=== PATIENT | male | born 1960 | race Caucasian/White ===

== ENCOUNTER → 2017-11-13 10:13 | Outpatient (CLI) | payer OTHER, BC, SELFPAY ==
--- NOTE | 2017-11-13 10:16 | DI.RAD.S_ITS ---
PROCEDURE: XR FOOT RT MIN 3V INDICATIONS: RIGHT FOOT PAIN TECHNIQUE: 3 views of the foot were acquired. COMPARISON: None. FINDINGS: Bones: No fractures or dislocations. No suspicious bony lesions. Mild calcaneal insertion spurring at the plantar fascia and Achilles tendon margins, consistent with calcific tendinitis/enthesopathy. Soft tissues: No tibiotalar joint effusion. Achilles tendon appears normal. IMPRESSION: There are plantar fascia and Achilles tendon mild insertional spurs at the posterior calcaneus. No alternative source of foot pain is found. Dictated by: Sudhir Jiménez M.D. on 11/13/2017 at 10:36 Approved by: Sudhir Jiménez M.D. on 11/13/2017 at 10:37
== END ==
PROVIDERS: Family Provider Physician Assistant; PCP Physician Assistant; Visit Provider Physician Assistant
DX: M79.671 Pain in right foot (principal); M77.31 Calcaneal spur, right foot
CPT/HCPCS: 73630

== ENCOUNTER → 2018-01-30 07:48 | Outpatient (CLI) | payer BC, SELFPAY ==
[2018-01-30 09:37] LABS: Alanine Aminotransferase 27 IU/L (21-72); Albumin 4.3 g/dL (3.5-5.0); Albumin Globulin Ratio 0.9 (1.0-2.8); Alkaline Phosphatase 43 U/L (38-126); Aspartate Aminotransferase 47 IU/L (17-59); Bilirubin Total 0.7 mg/dL (0.2-1.3); Blood Urea Nitrogen 16 mg/dL (9-20); Calcium 9.4 mg/dL (8.4-10.2); Carbon Dioxide 25 mmol/L (22-32); Chloride 105 mmol/L (98-107); Cholesterol 232 mg/dL (140-199); Estimated Glomerular Filt Rate > 60.0 mL/min (>60); Globulin 4.7 g/dL (1.7-4.1); Glucose 106 mg/dL (70-100); HDL Cholesterol 39 mg/dL (40-60); HEMOLYSIS 27 (0-50); LDL Cholesterol Calculated 173 mg/dL (<100); Potassium 4.4 mmol/L (3.4-5.1); Sodium 143 mmol/L (137-145); Triglycerides 101 mg/dL (35-150); Uric Acid 8.5 mg/dL (3.5-8.5)
[2018-01-30 09:45] LABS: Creatinine Urine Random 295.3 mg/dL
[2018-01-30 10:14] LABS: Microalbumi Creatinin Ratio Ur 169.3 ug/mg CR (<30)
== END ==
PROVIDERS: PCP Physician Assistant; Visit Provider Physician Assistant
DX: E78.5 Hyperlipidemia, unspecified (principal); I10 Essential (primary) hypertension; M25.50 Pain in unspecified joint
CPT/HCPCS: 36415; 80053; 80061; 82043; 82570; 84550

== ENCOUNTER → 2018-02-12 11:44 | Outpatient (CLI) | payer BC, SELFPAY ==
[2018-02-12 12:24] LABS: Add Manual Diff / Slide Review NO; Basophils Percent Auto 0.5 % (0-2); Eosinophils Percent Auto 12.9 % (2-4); Hematocrit 50.1 % (41-53); Hemoglobin 16.9 g/dL (13.5-17.5); Lymphocytes Percent Auto 14.3 % (25-40); Mean Corpuscular HGB Conc 33.7 % (30-36); Mean Corpuscular Volume 97.8 fL (80-100); Monocytes Percent Auto 13.6 % (3-14); Neutrophils Absolute Auto 2400 /uL (3000-5900); Neutrophils Percent Auto 58.7 % (50-75); Platelet Count 149 X10^3/uL (150-400); Red Blood Cell Count 5.13 X10^6/uL (4.5-5.9); Red Cell Distribution Width 13.3 % (11.6-14.8); White Blood Cell Count 4.1 X10^3/uL (4.5-11.0)
[2018-02-12 15:39] LABS: Alanine Aminotransferase 41 IU/L (21-72); Albumin 4.3 g/dL (3.5-5.0); Alkaline Phosphatase 44 U/L (38-126); Aspartate Aminotransferase 50 IU/L (17-59); Bilirubin Total 0.8 mg/dL (0.2-1.3); Bilirubin Unconjugated 0.3 mg/dL (0.0-1.1); Globulin 4.4 g/dL (1.7-4.1); HEMOLYSIS 16 (0-50); Total Protein 8.7 g/dL (6.3-8.2)
[2018-02-15 15:14] LABS: Albumin 37 %; Protein/ Creatinine Ratio 330 mg/g creat (22-128); Total Urine Protein 69 mg/dL (5-25); Urine Creatinine, Random 209 mg/dL (20-320)
== END ==
PROVIDERS: PCP Physician Assistant; Visit Provider Physician Assistant
DX: F10.10 Alcohol abuse, uncomplicated (principal); R53.83 Other fatigue; R77.9 Abnormality of plasma protein, unspecified
CPT/HCPCS: 36415; 80076; 84156; 84166; 85025

== ENCOUNTER 2018-02-13 14:05 | Emergency (ER) | payer BC, SELFPAY ==
[2018-02-13 14:12] VITALS: BP 113/80; PULSE 89; RESP 18; O2SAT 95
[2018-02-13 14:14] VITALS: BP 113/80; PULSE 89; RESP 18; TEMP 38.2; O2SAT 95; BMI 34.0
--- NOTE | 2018-02-13 14:38 | ED.SYNCOPE ---
HPI - Syncope <SEDRICK Loyd - Last Filed: 02/13/18 22:13> General Chief Complaint: Syncope Stated Complaint: ABNORMAL EKG,ALMOST FAINTED DRIVING,HX CARDIAC CAILIN Time Seen by Provider: 02/13/18 14:16 Source: patient Mode of arrival: ambulatory Limitations: no limitations History of Present Illness HPI narrative: 57-year-old male with a history of aflutter and is a nonsmoker here for complaint of a 3 episodes of feeling lightheaded and that he felt like he was about ready to pass out earlier today that started at 8 o'clock this morning. 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 He reports that he did have some episodes of a blurriness in his vision during these episodes. He does report that he normally drinks a 5th of vodka every night for approximately 10 years and states that he is recently in the past couple of days trying to decrease the amount of alcohol that he is drinking. He states that he was not able to have much alcohol intake last night due to a tooth pain as he recently seen the dentist. He has been placed on antibiotics however he has not picked up his antibiotics as of yet. He denies any chest pain. No shortness of breath. He denies having fever however he does have a fever today. He states that he feels better at this timeframe with no lightheadedness. No headache. No blurry vision. He denies any nausea vomiting. No diaphoresis. MD complaint: felt faint Related Data Previous Rx's Medication Instructions Recorded lisinopril 10 1 tab PO DAILY #90 tab 09/02/17 mg-hydrochlorothiazide 12.5 mg tablet allopurinol 300 mg tablet 300 mg PO DAILY #90 tab 01/30/18 atorvastatin 20 mg tablet 20 mg PO BEDTIME #45 tab 02/11/18 Allergies Allergy/AdvReac Type Severity Reaction Status Date / Time No Known Allergies Allergy Uncoded 02/13/18 12:55 Review of Systems <SEDRICK Loyd - Last Filed: 02/13/18 22:13> Constitutional Denies frequent falls Comments: Pre syncopal events and lightheadedness Eyes Reports blurry vision ENT Ears, Nose, Mouth, and Throat: Denies change in voice, Denies dizziness, Denies neck pain and Denies sore throat Cardiovascular Denies chest pain, Denies irregular heart rhythm, Denies lightheadedness, Denies palpitations, Denies dyspnea, Denies dyspnea on exertion and Denies orthopnea Respiratory Denies cough, Denies dyspnea, Denies dyspnea on exertion and Denies wheezing Gastrointestinal Gastrointestinal: Denies abdominal pain, Denies change in bowel habits, Denies diarrhea, Denies nausea and Denies vomiting Genitourinary Denies hematuria, Denies flank pain, Denies urinary incontinence and Denies urinary urgency Musculoskeletal Denies neck pain and Denies numbness Integumentary/Breasts Denies pruritus, Denies erythema, Denies rash and Denies wounds Neurologic Denies behavioral changes, Denies confusion, Denies dizziness, Denies frequent falls and Denies numbness Psychiatric Denies behavioral changes and Denies confusion Endocrine Denies palpitations Hematologic/Lymphatic Denies easy bruising Allergic/Immunologic Denies wheezing Exam <SEDRICK Loyd - Last Filed: 02/13/18 22:13> Initial Vital Signs Initial Vital Signs: Vital Signs Pulse Rate 89 02/13/18 14:12 Respiratory Rate 18 02/13/18 14:12 Blood Pressure 113/80 02/13/18 14:12 Pulse Oximetry 95 02/13/18 14:12 Const General: cooperative and well developed Nutritional Appearance: well nourished Orientation: alert, awake, oriented x3 and not confused [facility] Mouth: oral mucosae normal and moist mucous membranes Eyes Conjunctivae: conjunctivae normal Sclera: sclerae normal Pupils: PERRL EOM: EOM intact bilaterally Chest Chest: normal inspection of the chest Resp Effort & Inspection: normal respiratory effort, able to speak in complete sentences, no respiratory distress and no use of accessory muscles Auscultation: clear to auscultation bilaterally, no rales, no rhonchi and no wheezes Cardio Rate: regular rate Rhythm: regular rhythm Heart Sounds: no click, no gallops, no murmurs and no rubs Pulses: normal peripheral pulses Skin General: no rashes or lesions noted, No jaundice and No petechiae Neuro General: alert, oriented x3, gait normal and no focal motor deficits Speech: speech normal <Sal Hernandez DO - Last Filed: 02/14/18 07:12> Initial Vital Signs Initial Vital Signs: Vital Signs Pulse Rate 89 02/13/18 14:12 Respiratory Rate 18 02/13/18 14:12 Blood Pressure 113/80 02/13/18 14:12 Pulse Oximetry 95 02/13/18 14:12 Course <SEDRICK Loyd - Last Filed: 02/13/18 22:13> Orders Ordered: Discontinued Medications Sodium Chloride (Normal Saline 0.9%) 1,000 mls @ 1,000 mls/hr IV BOLUS ONE Stop: 02/13/18 15:26 Last Infusion: 02/13/18 16:21 Dose: 0 mls/hr Admin: 02/13/18 15:00 Dose: 1,000 mls/hr Sodium Chloride (Normal Saline 0.9%) 1,000 mls @ 1,000 mls/hr IV BOLUS ONE Stop: 02/13/18 16:48 Vital Signs - 8 hr 02/13/18 14:12 02/13/18 14:14 02/13/18 16:28 Temperature 100.8 F H 98.4 F Pulse Rate 89 89 79 Respiratory Rate 18 18 16 Blood Pressure 113/80 118/79 Blood Pressure [Left Arm] 113/80 Pulse Oximetry 95 95 95 <Sal Hernandez DO - Last Filed: 02/14/18 07:12> Orders Ordered: Discontinued Medications Sodium Chloride (Normal Saline 0.9%) 1,000 mls @ 1,000 mls/hr IV BOLUS ONE Stop: 02/13/18 15:26 Last Infusion: 02/13/18 16:21 Dose: 0 mls/hr Admin: 02/13/18 15:00 Dose: 1,000 mls/hr Sodium Chloride (Normal Saline 0.9%) 1,000 mls @ 1,000 mls/hr IV BOLUS ONE Stop: 02/13/18 16:48 Vital Signs - 8 hr 02/13/18 14:12 02/13/18 14:14 02/13/18 16:28 Temperature 100.8 F H 98.4 F Pulse Rate 89 89 79 Respiratory Rate 18 18 16 Blood Pressure 113/80 118/79 Blood Pressure [Left Arm] 113/80 Pulse Oximetry 95 95 95 MDM - Syncope <SEDRICK Loyd - Last Filed: 02/13/18 22:13> Lab Data Result diagrams: 02/13/18 14:29 02/13/18 14:29 Lab Results 02/13/18 02/13/18 02/13/18 Range/Units 14:05 14:29 14:29 WBC 4.8 (4.5-11.0) X10^3/uL RBC 4.94 (4.5-5.9) X10^6/uL Hgb 16.8 (13.5-17.5) g/dL Hct 48.8 (41-53) % MCV 98.9 (80-100) fL MCH 33.9 (26-34) PG MCHC 34.3 (30-36) % RDW 13.5 (11.6-14.8) % Plt Count 123 L (150-400) X10^3/uL Neut % (Auto) 73.5 (50-75) % Lymph % (Auto) 9.2 L (25-40) % Pleasants % (Auto) 10.4 (3-14) % Eos % (Auto) 6.3 H (2-4) % Baso % (Auto) 0.6 (0-2) % Neut # (Auto) 3500 (7352-5674) /uL Sodium 133 L (137-145) mmol/L Potassium 5.1 (3.4-5.1) mmol/L Chloride 91 L (98-107) mmol/L Carbon Dioxide 25 (22-32) mmol/L BUN 32 H (9-20) mg/dL Creatinine 1.70 H (0.66-1.25) mg/dL Estimated GFR 41.8 L (>60) mL/min BUN/Creatinine Ratio 18.8 (6-22) Glucose 105 H (70-100) mg/dL Calcium 9.2 (8.4-10.2) mg/dL Total Bilirubin 1.0 (0.2-1.3) mg/dL AST 68 H (17-59) IU/L ALT 36 (21-72) IU/L Alkaline Phosphatase 37 L (38-126) U/L Total Creatine Kinase 95 (55-170) U/L CK-MB (CK-2) TNP CK-MB (CK-2) Rel Index TNP Troponin I < 0.012 (0.01-0.034) ng/mL B-Natriuretic Peptide < 100.0 (<100) Total Protein 9.6 H (6.3-8.2) g/dL Albumin 4.5 (3.5-5.0) g/dL Globulin 5.1 H (1.7-4.1) g/dL Albumin/Globulin Ratio 0.9 L (1.0-2.8) Imaging Data CT scan - head: Radiologist's impression: [address] [address] [address] Scan Report Signed Patient: Shaw Melvin [facility]#: [id number] : 1Acct:[id number] Age/Sex: 57 / MDate of Service: 02/13/18 Loc: ED Accession Number: [id number] Procedure: CT head/brain wo con Ordering Provider: Calderon Campbell PROCEDURE: CT HEAD/BRAIN WO CON INDICATIONS: Pre syncopal episodes earlier today TECHNIQUE: Noncontrast 4.5 mm thick angled axial sections acquired from the foramen magnum to the vertex, with coronal and sagittal reformats. For radiation dose reduction, the following was used: automated exposure control, adjustment of mA and/or kV according to patient size. COMPARISON: None. FINDINGS: Image quality: Excellent. CSF spaces: Basal cisterns are patent. No extra-axial fluid collections. The ventricles are symmetric in size and shape. Brain: No intracranial bleeds or masses. There is cerebral volume loss for age, with resultant ventricular and sulcal prominence. There are periventricular and deep white matter chronic small vessel ischemic changes. There is intracranial internal carotid artery atherosclerosis. Skull and face: Calvarium and visualized facial bones appear intact, without suspicious lesions. Sinuses: Visualized sinuses and mastoids are clear. IMPRESSION: No acute intracranial disease process. Dictated by: Grace Jamil MD, PhD on 02/13/2018 at 14:57 Approved by: Grace Jamil MD, PhD on 02/13/2018 at 14:58 ECG Data Interpretation: EKG shows normal sinus rhythm with no ST elevation or depression. No ectopy. Ventricular rate of 85. Pr interval of 196. QRS duration of 101. QTC 358. MDM Narrative Medical decision making narrative: EKG shows sinus rhythm with no ST elevation or depression. No ectopy. Chest x-ray was obtained was negative for any acute findings. CT of the head was obtained was negative. Patient was given some fluids in the emergency room he stated he felt much better. CBC was obtained was unremarkable. Chem panel shows decreased GFR increased creatinine of 1.7. Patient states that he has not been drinking much fluids so most likely secondary to dehydration. Patient states he felt better after fluids and desires to go home. Cardiac enzymes were obtained at 6 and half hr past start of symptoms and was negative. Patient had a low-grade fever in the emergency room suspect that this is due to the dental procedure and starting infection. Patient is prescribed antibiotics by the dentist however he has not filled them as of yet he was instructed to fill them today and start taking. [id number] Tylenol as needed for any discomfort. He is given a work note for the next couple of days to give him time to follow up with primary care provider and ensure is doing better before he starts driving again. Combination of the infection, dehydration and also affects of weaning himself off of alcohol contributing to his presyncope episodes. Discussed alcohol withdrawal medicines patient states that he will talk to his primary care provider about this for any worsening symptoms return emergency room. <Sal Hernandez, DO - Last Filed: 02/14/18 07:12> Lab Data Lab Results 02/13/18 02/13/18 02/13/18 Range/Units 14:05 14:29 14:29 WBC 4.8 (4.5-11.0) X10^3/uL RBC 4.94 (4.5-5.9) X10^6/uL Hgb 16.8 (13.5-17.5) g/dL Hct 48.8 (41-53) % MCV 98.9 (80-100) fL MCH 33.9 (26-34) PG MCHC 34.3 (30-36) % RDW 13.5 (11.6-14.8) % Plt Count 123 L (150-400) X10^3/uL Neut % (Auto) 73.5 (50-75) % Lymph % (Auto) 9.2 L (25-40) % Pleasants % (Auto) 10.4 (3-14) % Eos % (Auto) 6.3 H (2-4) % Baso % (Auto) 0.6 (0-2) % Neut # (Auto) 3500 (9117-9029) /uL Sodium 133 L (137-145) mmol/L Potassium 5.1 (3.4-5.1) mmol/L Chloride 91 L (98-107) mmol/L Carbon Dioxide 25 (22-32) mmol/L BUN 32 H (9-20) mg/dL Creatinine 1.70 H (0.66-1.25) mg/dL Estimated GFR 41.8 L (>60) mL/min BUN/Creatinine Ratio 18.8 (6-22) Glucose 105 H (70-100) mg/dL Calcium 9.2 (8.4-10.2) mg/dL Total Bilirubin 1.0 (0.2-1.3) mg/dL AST 68 H (17-59) IU/L ALT 36 (21-72) IU/L Alkaline Phosphatase 37 L (38-126) U/L Total Creatine Kinase 95 (55-170) U/L CK-MB (CK-2) TNP CK-MB (CK-2) Rel Index TNP Troponin I < 0.012 (0.01-0.034) ng/mL B-Natriuretic Peptide < 100.0 (<100) Total Protein 9.6 H (6.3-8.2) g/dL Albumin 4.5 (3.5-5.0) g/dL Globulin 5.1 H (1.7-4.1) g/dL Albumin/Globulin Ratio 0.9 L (1.0-2.8) Discharge Plan Departure Patient Disposition: Home Clinical Impression: Pre-syncope Discharge Date/Time: 02/13/18 16:30 Interventions: ED Discharge Assessment Last Done: 02/13/18 16:28 Instructions: DI for Syncope in Adults (Fainting) Activity Restrictions/Additional Instructions: Laboratory results show decreased kidney function most likely secondary to dehydration. I believe that your symptoms earlier today was most likely due to dehydration along with other factors such as suspect starting dental infection. And also weaning off of alcohol. Recommend you hydrate yourself well. Fill prescription for antibiotics from the dentist start taking as prescribed follow-up with dentist next week. Follow up with her primary care provider the next few days for re-evaluation. For any worsening symptoms return to the emergency room. Use [id number] Tylenol as needed for any discomfort and fever. Prescriptions: No Action lisinopril-hydrochlorothiazide 10-12.5 mg tablet 1 tab PO DAILY Qty: 90 RF: 3 atorvastatin 20 mg tablet 20 mg PO BEDTIME Qty: 45 RF: 1 allopurinol 300 mg tablet 300 mg PO DAILY Qty: 90 RF: 1 Referrals: Meri Garcia PA-C [Primary Care Provider] - Stand Alone Forms: Work/School Restrictions <Sal Hernandez DO - Last Filed: 02/14/18 07:12> Cosign ED Attending Wali Attestation: I was available for consultation during this patient's emergency department encounter
--- NOTE | 2018-02-13 14:42 | ED_ITS ---
HPI - Syncope <SEDRICK Loyd - Last Filed: 02/13/18 22:13> General Chief Complaint: Syncope Stated Complaint: ABNORMAL EKG,ALMOST FAINTED DRIVING,HX CARDIAC CAILIN Time Seen by Provider: 02/13/18 14:16 Source: patient Mode of arrival: ambulatory Limitations: no limitations History of Present Illness HPI narrative: 57-year-old male with a history of aflutter and is a nonsmoker here for complaint of a 3 episodes of feeling lightheaded and that he felt like he was about ready to pass out earlier today that started at 8 o'clock this morning. 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 He reports that he did have some episodes of a blurriness in his vision during these episodes. He does report that he normally drinks a 5th of vodka every night for approximately 10 years and states that he is recently in the past couple of days trying to decrease the amount of alcohol that he is drinking. He states that he was not able to have much alcohol intake last night due to a tooth pain as he recently seen the dentist. He has been placed on antibiotics however he has not picked up his antibiotics as of yet. He denies any chest pain. No shortness of breath. He denies having fever however he does have a fever today. He states that he feels better at this timeframe with no lightheadedness. No headache. No blurry vision. He denies any nausea vomiting. No diaphoresis. MD complaint: felt faint Related Data Previous Rx's Medication Instructions Recorded lisinopril 10 1 tab PO DAILY #90 tab 09/02/17 mg-hydrochlorothiazide 12.5 mg tablet allopurinol 300 mg tablet 300 mg PO DAILY #90 tab 01/30/18 atorvastatin 20 mg tablet 20 mg PO BEDTIME #45 tab 02/11/18 Allergies Allergy/AdvReac Type Severity Reaction Status Date / Time No Known Allergies Allergy Uncoded 02/13/18 12:55 Review of Systems <SEDRICK Loyd - Last Filed: 02/13/18 22:13> Constitutional Denies frequent falls Comments: Pre syncopal events and lightheadedness Eyes Reports blurry vision ENT Ears, Nose, Mouth, and Throat: Denies change in voice, Denies dizziness, Denies neck pain and Denies sore throat Cardiovascular Denies chest pain, Denies irregular heart rhythm, Denies lightheadedness, Denies palpitations, Denies dyspnea, Denies dyspnea on exertion and Denies orthopnea Respiratory Denies cough, Denies dyspnea, Denies dyspnea on exertion and Denies wheezing Gastrointestinal Gastrointestinal: Denies abdominal pain, Denies change in bowel habits, Denies diarrhea, Denies nausea and Denies vomiting Genitourinary Denies hematuria, Denies flank pain, Denies urinary incontinence and Denies urinary urgency Musculoskeletal Denies neck pain and Denies numbness Integumentary/Breasts Denies pruritus, Denies erythema, Denies rash and Denies wounds Neurologic Denies behavioral changes, Denies confusion, Denies dizziness, Denies frequent falls and Denies numbness Psychiatric Denies behavioral changes and Denies confusion Endocrine Denies palpitations Hematologic/Lymphatic Denies easy bruising Allergic/Immunologic Denies wheezing Exam <SEDRICK Loyd - Last Filed: 02/13/18 22:13> Initial Vital Signs Initial Vital Signs: Vital Signs Pulse Rate 89 02/13/18 14:12 Respiratory Rate 18 02/13/18 14:12 Blood Pressure 113/80 02/13/18 14:12 Pulse Oximetry 95 02/13/18 14:12 Const General: cooperative and well developed Nutritional Appearance: well nourished Orientation: alert, awake, oriented x3 and not confused [facility] Mouth: oral mucosae normal and moist mucous membranes Eyes Conjunctivae: conjunctivae normal Sclera: sclerae normal Pupils: PERRL EOM: EOM intact bilaterally Chest Chest: normal inspection of the chest Resp Effort & Inspection: normal respiratory effort, able to speak in complete sentences, no respiratory distress and no use of accessory muscles Auscultation: clear to auscultation bilaterally, no rales, no rhonchi and no wheezes Cardio Rate: regular rate Rhythm: regular rhythm Heart Sounds: no click, no gallops, no murmurs and no rubs Pulses: normal peripheral pulses Skin General: no rashes or lesions noted, No jaundice and No petechiae Neuro General: alert, oriented x3, gait normal and no focal motor deficits Speech: speech normal <Sal Hernandez DO - Last Filed: 02/14/18 07:12> Initial Vital Signs Initial Vital Signs: Vital Signs Pulse Rate 89 02/13/18 14:12 Respiratory Rate 18 02/13/18 14:12 Blood Pressure 113/80 02/13/18 14:12 Pulse Oximetry 95 02/13/18 14:12 Course <SEDRICK Loyd - Last Filed: 02/13/18 22:13> Orders Ordered: Discontinued Medications Sodium Chloride (Normal Saline 0.9%) 1,000 mls @ 1,000 mls/hr IV BOLUS ONE Stop: 02/13/18 15:26 Last Infusion: 02/13/18 16:21 Dose: 0 mls/hr Admin: 02/13/18 15:00 Dose: 1,000 mls/hr Sodium Chloride (Normal Saline 0.9%) 1,000 mls @ 1,000 mls/hr IV BOLUS ONE Stop: 02/13/18 16:48 Vital Signs - 8 hr 02/13/18 14:12 02/13/18 14:14 02/13/18 16:28 Temperature 100.8 F H 98.4 F Pulse Rate 89 89 79 Respiratory Rate 18 18 16 Blood Pressure 113/80 118/79 Blood Pressure [Left Arm] 113/80 Pulse Oximetry 95 95 95 <Sal Hernandez DO - Last Filed: 02/14/18 07:12> Orders Ordered: Discontinued Medications Sodium Chloride (Normal Saline 0.9%) 1,000 mls @ 1,000 mls/hr IV BOLUS ONE Stop: 02/13/18 15:26 Last Infusion: 02/13/18 16:21 Dose: 0 mls/hr Admin: 02/13/18 15:00 Dose: 1,000 mls/hr Sodium Chloride (Normal Saline 0.9%) 1,000 mls @ 1,000 mls/hr IV BOLUS ONE Stop: 02/13/18 16:48 Vital Signs - 8 hr 02/13/18 14:12 02/13/18 14:14 02/13/18 16:28 Temperature 100.8 F H 98.4 F Pulse Rate 89 89 79 Respiratory Rate 18 18 16 Blood Pressure 113/80 118/79 Blood Pressure [Left Arm] 113/80 Pulse Oximetry 95 95 95 MDM - Syncope <SEDRICK Loyd - Last Filed: 02/13/18 22:13> Lab Data Result diagrams: 02/13/18 14:29 02/13/18 14:29 Lab Results 02/13/18 02/13/18 02/13/18 Range/Units 14:05 14:29 14:29 WBC 4.8 (4.5-11.0) X10^3/uL RBC 4.94 (4.5-5.9) X10^6/uL Hgb 16.8 (13.5-17.5) g/dL Hct 48.8 (41-53) % MCV 98.9 (80-100) fL MCH 33.9 (26-34) PG MCHC 34.3 (30-36) % RDW 13.5 (11.6-14.8) % Plt Count 123 L (150-400) X10^3/uL Neut % (Auto) 73.5 (50-75) % Lymph % (Auto) 9.2 L (25-40) % [place] % (Auto) 10.4 (3-14) % Eos % (Auto) 6.3 H (2-4) % Baso % (Auto) 0.6 (0-2) % Neut # (Auto) 3500 (5966-1227) /uL Sodium 133 L (137-145) mmol/L Potassium 5.1 (3.4-5.1) mmol/L Chloride 91 L (98-107) mmol/L Carbon Dioxide 25 (22-32) mmol/L BUN 32 H (9-20) mg/dL Creatinine 1.70 H (0.66-1.25) mg/dL Estimated GFR 41.8 L (>60) mL/min BUN/Creatinine Ratio 18.8 (6-22) Glucose 105 H (70-100) mg/dL Calcium 9.2 (8.4-10.2) mg/dL Total Bilirubin 1.0 (0.2-1.3) mg/dL AST 68 H (17-59) IU/L ALT 36 (21-72) IU/L Alkaline Phosphatase 37 L (38-126) U/L Total Creatine Kinase 95 (55-170) U/L CK-MB (CK-2) TNP CK-MB (CK-2) Rel Index TNP Troponin I < 0.012 (0.01-0.034) ng/mL B-Natriuretic Peptide < 100.0 (<100) Total Protein 9.6 H (6.3-8.2) g/dL Albumin 4.5 (3.5-5.0) g/dL Globulin 5.1 H (1.7-4.1) g/dL Albumin/Globulin Ratio 0.9 L (1.0-2.8) Imaging Data CT scan - head: Radiologist's impression: [address] [id number] [address] Scan Report Signed Patient: Shaw Melvin [facility]#: [id number] : 1Acct:[id number] Age/Sex: 57 / MDate of Service: 02/13/18 Loc: ED Accession Number: [id number] Procedure: CT head/brain wo con Ordering Provider: Calderon Campbell PROCEDURE: CT HEAD/BRAIN WO CON INDICATIONS: Pre syncopal episodes earlier today TECHNIQUE: Noncontrast 4.5 mm thick angled axial sections acquired from the foramen magnum to the vertex, with coronal and sagittal reformats. For radiation dose reduction, the following was used: automated exposure control, adjustment of mA and/or kV according to patient size. COMPARISON: None. FINDINGS: Image quality: Excellent. CSF spaces: Basal cisterns are patent. No extra-axial fluid collections. The ventricles are symmetric in size and shape. Brain: No intracranial bleeds or masses. There is cerebral volume loss for age , with resultant ventricular and sulcal prominence. There are periventricular and deep white matter chronic small vessel ischemic changes. There is intracranial internal carotid artery atherosclerosis. Skull and face: Calvarium and visualized facial bones appear intact, without suspicious lesions. Sinuses: Visualized sinuses and mastoids are clear. IMPRESSION: No acute intracranial disease process. Dictated by: Grace Jamil MD, PhD on 02/13/2018 at 14:57 Approved by: Grace Jamil MD, PhD on 02/13/2018 at 14:58 ECG Data Interpretation: EKG shows normal sinus rhythm with no ST elevation or depression. No ectopy. Ventricular rate of 85. Pr interval of 196. QRS duration of 101. QTC 358. MDM Narrative Medical decision making narrative: EKG shows sinus rhythm with no ST elevation or depression. No ectopy. Chest x-ray was obtained was negative for any acute findings. CT of the head was obtained was negative. Patient was given some fluids in the emergency room he stated he felt much better. CBC was obtained was unremarkable. Chem panel shows decreased GFR increased creatinine of 1.7. Patient states that he has not been drinking much fluids so most likely secondary to dehydration. Patient states he felt better after fluids and desires to go home. Cardiac enzymes were obtained at 6 and half hr past start of symptoms and was negative. Patient had a low-grade fever in the emergency room suspect that this is due to the dental procedure and starting infection. Patient is prescribed antibiotics by the dentist however he has not filled them as of yet he was instructed to fill them today and start taking. Over-the- counter Tylenol as needed for any discomfort. He is given a work note for the next couple of days to give him time to follow up with primary care provider and ensure is doing better before he starts driving again. Combination of the infection, dehydration and also affects of weaning himself off of alcohol contributing to his presyncope episodes. Discussed alcohol withdrawal medicines patient states that he will talk to his primary care provider about this for any worsening symptoms return emergency room. <Sal Hernandez, DO - Last Filed: 02/14/18 07:12> Lab Data Lab Results 02/13/18 02/13/18 02/13/18 Range/Units 14:05 14:29 14:29 WBC 4.8 (4.5-11.0) X10^3/uL RBC 4.94 (4.5-5.9) X10^6/uL Hgb 16.8 (13.5-17.5) g/dL Hct 48.8 (41-53) % MCV 98.9 (80-100) fL MCH 33.9 (26-34) PG MCHC 34.3 (30-36) % RDW 13.5 (11.6-14.8) % Plt Count 123 L (150-400) X10^3/uL Neut % (Auto) 73.5 (50-75) % Lymph % (Auto) 9.2 L (25-40) % [place] % (Auto) 10.4 (3-14) % Eos % (Auto) 6.3 H (2-4) % Baso % (Auto) 0.6 (0-2) % Neut # (Auto) 3500 (9802-7657) /uL Sodium 133 L (137-145) mmol/L Potassium 5.1 (3.4-5.1) mmol/L Chloride 91 L (98-107) mmol/L Carbon Dioxide 25 (22-32) mmol/L BUN 32 H (9-20) mg/dL Creatinine 1.70 H (0.66-1.25) mg/dL Estimated GFR 41.8 L (>60) mL/min BUN/Creatinine Ratio 18.8 (6-22) Glucose 105 H (70-100) mg/dL Calcium 9.2 (8.4-10.2) mg/dL Total Bilirubin 1.0 (0.2-1.3) mg/dL AST 68 H (17-59) IU/L ALT 36 (21-72) IU/L Alkaline Phosphatase 37 L (38-126) U/L Total Creatine Kinase 95 (55-170) U/L CK-MB (CK-2) TNP CK-MB (CK-2) Rel Index TNP Troponin I < 0.012 (0.01-0.034) ng/mL B-Natriuretic Peptide < 100.0 (<100) Total Protein 9.6 H (6.3-8.2) g/dL Albumin 4.5 (3.5-5.0) g/dL Globulin 5.1 H (1.7-4.1) g/dL Albumin/Globulin Ratio 0.9 L (1.0-2.8) Discharge Plan Departure Patient Disposition: Home Clinical Impression: Pre-syncope Discharge Date/Time: 02/13/18 16:30 Interventions: ED Discharge Assessment Last Done: 02/13/18 16:28 Instructions: DI for Syncope in Adults (Fainting) Activity Restrictions/Additional Instructions: Laboratory results show decreased kidney function most likely secondary to dehydration. I believe that your symptoms earlier today was most likely due to dehydration along with other factors such as suspect starting dental infection. And also weaning off of alcohol. Recommend you hydrate yourself well. Fill prescription for antibiotics from the dentist start taking as prescribed follow- up with dentist next week. Follow up with her primary care provider the next few days for re-evaluation. For any worsening symptoms return to the emergency room. Use [id number] Tylenol as needed for any discomfort and fever. Prescriptions: No Action lisinopril-hydrochlorothiazide 10-12.5 mg tablet 1 tab PO DAILY Qty: 90 RF: 3 atorvastatin 20 mg tablet 20 mg PO BEDTIME Qty: 45 RF: 1 allopurinol 300 mg tablet 300 mg PO DAILY Qty: 90 RF: 1 Referrals: Meri Garcia PA-C [Primary Care Provider] - Stand Alone Forms: Work/School Restrictions <Sal Hernandez DO - Last Filed: 02/14/18 07:12> Cosign ED Attending Wali Attestation: I was available for consultation during this patient's emergency department encounter
--- NOTE | 2018-02-13 14:45 | DI.CT.S_ITS ---
PROCEDURE: CT HEAD/BRAIN WO CON INDICATIONS: Pre syncopal episodes earlier today TECHNIQUE: Noncontrast 4.5 mm thick angled axial sections acquired from the foramen magnum to the vertex, with coronal and sagittal reformats. For radiation dose reduction, the following was used: automated exposure control, adjustment of mA and/or kV according to patient size. COMPARISON: None. FINDINGS: Image quality: Excellent. CSF spaces: Basal cisterns are patent. No extra-axial fluid collections. The ventricles are symmetric in size and shape. Brain: No intracranial bleeds or masses. There is cerebral volume loss for age, with resultant ventricular and sulcal prominence. There are periventricular and deep white matter chronic small vessel ischemic changes. There is intracranial internal carotid artery atherosclerosis. Skull and face: Calvarium and visualized facial bones appear intact, without suspicious lesions. Sinuses: Visualized sinuses and mastoids are clear. IMPRESSION: No acute intracranial disease process. Dictated by: Grace Jamil MD, PhD on 02/13/2018 at 14:57 Approved by: Grace Jamil MD, PhD on 02/13/2018 at 14:58
[2018-02-13 14:59] LABS: Add Manual Diff / Slide Review NO; Basophils Percent Auto 0.6 % (0-2); Eosinophils Percent Auto 6.3 % (2-4); Hematocrit 48.8 % (41-53); Hemoglobin 16.8 g/dL (13.5-17.5); Lymphocytes Percent Auto 9.2 % (25-40); Mean Corpuscular HGB Conc 34.3 % (30-36); Mean Corpuscular Hemoglobin 33.9 PG (26-34); Mean Corpuscular Volume 98.9 fL (80-100); Monocytes Percent Auto 10.4 % (3-14); Neutrophils Absolute Auto 3500 /uL (3000-5900); Neutrophils Percent Auto 73.5 % (50-75); Platelet Count 123 X10^3/uL (150-400); Red Blood Cell Count 4.94 X10^6/uL (4.5-5.9); Red Cell Distribution Width 13.5 % (11.6-14.8); White Blood Cell Count 4.8 X10^3/uL (4.5-11.0)
[2018-02-13] MEDS: SODIUM CHLORIDE 0.9% 1,000 ML 1000 ML IV (15:00)
[2018-02-13 15:25] LABS: Alanine Aminotransferase 36 IU/L (21-72); Albumin 4.5 g/dL (3.5-5.0); Albumin Globulin Ratio 0.9 (1.0-2.8); Alkaline Phosphatase 37 U/L (38-126); Aspartate Aminotransferase 68 IU/L (17-59); BUN Creatinine Ratio 18.8 (6-22); Blood Urea Nitrogen 32 mg/dL (9-20); Calcium 9.2 mg/dL (8.4-10.2); Carbon Dioxide 25 mmol/L (22-32); Chloride 91 mmol/L (98-107); Creatine Kinase 95 U/L (55-170); Estimated Glomerular Filt Rate 41.8 mL/min (>60); Globulin 5.1 g/dL (1.7-4.1); Glucose 105 mg/dL (70-100); Sodium 133 mmol/L (137-145); Total Protein 9.6 g/dL (6.3-8.2)
[2018-02-13 15:32] LABS: HEMOLYSIS 113 (0-50)
[2018-02-13 15:32] LABS: B Type Natriuretic Peptide < 100.0 (<100)
[2018-02-13 15:33] LABS: Potassium 5.1 mmol/L (3.4-5.1)
[2018-02-13 15:38] LABS: Troponin I < 0.012 ng/mL (0.01-0.034)
[2018-02-13 16:28] VITALS: BP 118/79; PULSE 79; RESP 16; TEMP 36.9; O2SAT 95
== END 2018-02-13 16:30 | disposition home or self-care (01) ==
PROVIDERS: Emergency Provider Nurse Practitioner Family; Family Provider Physician Assistant; PCP Physician Assistant
DX: R55 Syncope and collapse (principal)
CPT/HCPCS: 36591; 70450; 80053; 82550; 83880; 84484; 85025; 93005; 93010; 96360; 99283; 99285

== ENCOUNTER 2020-03-14 10:53 | Emergency (ER) | payer BC, SELFPAY ==
[2020-03-14] VITALS (9 sets, daily range): BP systolic 166–209; BP diastolic 89–119; PULSE 77–88; RESP 17–24; TEMP 36.6; O2SAT 94–96; BMI 38.9
--- NOTE | 2020-03-14 12:09 | DI.RAD.S_ITS ---
PROCEDURE: XR CHEST 1V INDICATIONS: Cough TECHNIQUE: One view of the chest was acquired. COMPARISON: [facility], , CHEST 2 VIEW, 05/06/2015, 14:45. FINDINGS: Surgical changes and devices: None. Lungs and pleura: An incomplete inspiratory result is noted, causing a crowded appearance to the lung markings. No focal infiltrates are seen. No pneumothorax or significant pleural effusions are seen. Mediastinum: Mediastinal contours appear normal. Heart size is normal. Bones and chest wall: No suspicious bony lesions. Age-appropriate bony degenerative changes are seen. Overlying soft tissues appear unremarkable. IMPRESSION: No definite, focal infiltrates are seen. If there is clinical concern for a developing pulmonary process, a short-term followup chest series (with PA and lateral views, performed in deep inspiration) is suggested for further evaluation. Dictated by: Isidro Curry M.D. on 03/14/2020 at 12:00 Approved by: Isidro Curry M.D. on 03/14/2020 at 12:01
[2020-03-14] MEDS: SODIUM CHLORIDE 0.9% 1,000 ML 1000 ML IV (12:30)
--- NOTE | 2020-03-14 12:38 | ED_ITS ---
HPI - URI/Sore Throat <SEDRICK Aguilar - Last Filed: 03/14/20 19:24> General Chief Complaint: Upper Respiratory Symptoms Stated Complaint: Spitting up blood this morning Time Seen by Provider: 03/14/20 12:01 Source: patient Mode of arrival: Ambulatory Limitations: no limitations History of Present Illness HPI Narrative: 59yo male with a history of a PE in 2012, HTN, and MONA, presents to the ED for coughing up blood that started yesterday. Patient states he usually has a cough in the mornings however, his cough 2-3 days. He noticed some blood-tinged phlegm yesterday and a small amount of increasing blood today. Patient states the blood in his phlegm decreases throughout the day. However, last time he had a pulmonary embolism his symptom was coughing up blood. He denies any other symptoms such as chest pain, shortness of breath, headaches, malaise, nausea, vomiting, diarrhea, dizziness, or any other concerns. Related Data Previous Rx's Medication Instructions Recorded allopurinol 300 mg tablet 300 mg PO DAILY #90 tab 01/30/18 atorvastatin 20 mg tablet 20 mg PO BEDTIME #45 tab 02/11/18 lisinopril 10 1 tab PO DAILY #90 tab 08/31/19 mg-hydrochlorothiazide 12.5 mg tablet Allergies Allergy/AdvReac Type Severity Reaction Status Date / Time No Known Allergies Allergy Uncoded 03/03/18 15:47 Review of Systems <SEDRICK Aguilar - Last Filed: 03/14/20 19:24> Review of Systems Narrative: REVIEW OF SYSTEMS: GENERAL: Denies fevers. HENT: No head trauma or hearing loss. EYES: No vision changes. CARDIOVASCULAR: No chest pain. RESPIRATORY: No shortness of breath, reports coughing up blood, see HPI. GASTROINTESTINAL: No nausea, vomiting, diarrhea, or constipation. MUSCULOSKELETAL: No weakness or injury. INTEGUMENTARY: No rash. Patient History <SEDRICK Aguilar - Last Filed: 03/14/20 19:24> Medical History Atrial flutter (06/2012) Closed displaced fracture of triquetrum of right wrist (11/12/16) Gout History of alcohol abuse Morbid obesity Pulmonary embolism (06/2012) Sleep apnea (~2012) Wrist fracture, right (10/2016) Surgical History S/P ablation of atrial flutter (10/01/12) Family History Father Cancer Grandfather Heart attack Mother No problems noted. Grandmother No problems noted. Brother No problems noted. Brother No problems noted. Brother No problems noted. Social History Smoking Status: Never smoker second hand exposure: No alcohol intake: current (vodka every day) substance use type: does not use Smoking Status: Never smoker alcohol intake frequency: 0-2 drinks per day Substance Use Type: does not use Exam <SEDRICK Aguilar - Last Filed: 03/14/20 19:24> Initial Vital Signs Initial Vital Signs: Vital Signs Temperature 98 F 03/14/20 11:09 Pulse Rate 88 03/14/20 11:09 Respiratory Rate 18 03/14/20 11:09 Blood Pressure 209/119 H 03/14/20 11:09 Pulse Oximetry 94 03/14/20 11:09 PHYSICAL EXAMINATION: GENERAL: Well groomed, alert, and cooperative. Answers questions promptly and appropriately. Vital signs noted. HENT: Normocephalic, atraumatic. Oropharynx without erythema. EYES: Conjunctiva pink, sclera white, no periorbital swelling. No discharge. CHEST: Normal to inspection and without deformities. CARDIOVASCULAR: S1 and S2 sounds normal. Regular rate and rhythm, no murmurs, clicks, or bruits. RESPIRATORY: Normal respiratory rate, trachea midline, airway patent. No stridor, nasal flaring or accessory muscle use. Able to speak in full sentence s. Lungs are clear in all chang without wheeze, rhonchi, or crackles. Intermittent dry cough noted throughout exam. MUSCULOSKELETAL: Normal gait and coordination. Equal tone and mass bilaterally. EXTREMITIES: Moves all extremities. SKIN: Warm, dry, soft, appropriate color for ethnicity. No lesions, rashes, or wounds to visualized areas. NEURO: Alert and Oriented X 3. Good coordination. No ataxia or cognitive issues. PSYCH: Appropriate affect and mood. <Kailyn TripathiDO - Last Filed: 03/15/20 19:14> Initial Vital Signs Initial Vital Signs: Vital Signs Temperature 98 F 03/14/20 11:09 Pulse Rate 88 03/14/20 11:09 Respiratory Rate 18 03/14/20 11:09 Blood Pressure 209/119 H 03/14/20 11:09 Pulse Oximetry 94 03/14/20 11:09 Scores <SEDRICK Aguilar - Last Filed: 03/14/20 19:24> PERC Score Age greater than or equal to 50 years: Yes Heart rate greater than or equal to 100 bpm: No Room Air O2 Sat less than 95%: Yes Unilateral leg swelling: No Recent trauma or surgery: No Hemoptysis: Yes Prior PE or DVT: Yes Hormone Use: No Total PERC Score: 4 Wells' Criteria for PE Clinical signs and symptoms of DVT: No PE is #1 Dx or equally likely: No Heart rate > 100: No Immobilization at least 3 days or surg in previous 4 weeks: No History of PE or DVT: Yes Hemoptysis: Yes Malignancy w/Treatment within 6 months or palliative: No Wells' PE Score total: 2.5 Course <SEDRICK Aguilar - Last Filed: 03/14/20 19:24> Course Course Narrative: 1531: Contacted Infectious Disease Dr. Miller, she suggested contacting the Health Department for possible admission versus discharge. However, she suggested admission with sputum studies and QuantiFERON gold. 1630: Spoke with the health department, they recommended calling local [facility] for further follow-up. 1646: I spoke with RN from [facility], discussed that this patient is currently in [facility], she states she will make calls and refer back. 1540: Patient was updated on plan of care 1708: Unable to get a hold of the health department, QuantiFERON gold and sputum culture ordered. Patient left AMA, gave cell phone number for contact information. 1730: I spoke with epidemiology is Dr. Sudhir Cohen, discussed test ordered. He agrees that patient can be followed up by outpatient and contacted if any positive findings. He reports he will reports suspected cases to the Health Department for further follow-up. Orders Ordered: Discontinued Medications Sodium Chloride (Normal Saline 0.9%) 1,000 mls @ 1,000 mls/hr IV BOLUS PRN PRN Reason: Fluid replacement Last Infusion: 03/14/20 13:15 Dose: 0 mls/hr Documented by: Admin: 03/14/20 12:30 Dose: 1,000 mls/hr Documented by: GERMAN Vital Signs Vital signs: Vital Signs - 8 hr 03/14/20 13:00 03/14/20 13:05 03/14/20 13:30 Pulse Rate 82 81 Respiratory Rate 24 22 Blood Pressure 178/97 H 173/89 H Pulse Oximetry 96 95 03/14/20 14:00 03/14/20 14:15 03/14/20 14:30 Pulse Rate 78 81 77 Respiratory Rate 21 19 17 Blood Pressure 179/92 H 191/110 H 166/97 H Pulse Oximetry 96 96 94 03/14/20 15:00 03/14/20 15:30 Pulse Rate 77 80 Respiratory Rate 19 23 Blood Pressure 180/98 H 199/107 H Pulse Oximetry 95 95 <Kailyn Tripathi DO - Last Filed: 03/15/20 19:14> Orders Ordered: Discontinued Medications Sodium Chloride (Normal Saline 0.9%) 1,000 mls @ 1,000 mls/hr IV BOLUS PRN PRN Reason: Fluid replacement Last Infusion: 03/14/20 13:15 Dose: 0 mls/hr Documented by: Admin: 03/14/20 12:30 Dose: 1,000 mls/hr Documented by: GERMAN Vital Signs Vital signs: Vital Signs - 8 hr 03/14/20 13:00 03/14/20 13:05 03/14/20 13:30 Pulse Rate 82 81 Respiratory Rate 24 22 Blood Pressure 178/97 H 173/89 H Pulse Oximetry 96 95 03/14/20 14:00 03/14/20 14:15 03/14/20 14:30 Pulse Rate 78 81 77 Respiratory Rate 21 19 17 Blood Pressure 179/92 H 191/110 H 166/97 H Pulse Oximetry 96 96 94 03/14/20 15:00 03/14/20 15:30 Pulse Rate 77 80 Respiratory Rate 19 23 Blood Pressure 180/98 H 199/107 H Pulse Oximetry 95 95 MDM - URI/Sore Throat <SEDRICK Aguilar - Last Filed: 03/14/20 19:24> Medical Records Attestation: I reviewed the patient's medical records. Lab Data Attestation: I reviewed the patient's lab results. Result diagrams: 03/14/20 12:30 03/14/20 12:30 Labs: Lab Results 03/14/20 03/14/20 03/14/20 Range/Units 12:30 12:30 12:30 WBC 8.4 (4.5-11.0) X10^3/uL RBC 4.92 (4.5-5.9) X10^6/uL Hgb 16.4 (13.5-17.5) g/dL Hct 48.9 (41-53) % MCV 99.2 (80-100) fL MCH 33.4 (26-34) PG MCHC 33.6 (30-36) % RDW 13.8 (11.6-14.8) % Plt Count 201 (150-400) X10^3/uL Neut % (Auto) 75.6 H (50-75) % Lymph % (Auto) 15.0 L (25-40) % [place] % (Auto) 7.8 (3-14) % Eos % (Auto) 1.0 L (2-4) % Baso % (Auto) 0.6 (0-2) % Neut # (Auto) 6400 (2887-7447) /uL Lymph # (Auto) 1300 (7575-7821) /uL [place] # (Auto) 700 (0-900) /uL Eos # (Auto) 100 (0-450) /uL Baso # (Auto) 100 (0-100) /uL D-Dimer 271 H (<230) ng/mL Sodium 138 (137-145) mmol/L Potassium 4.3 (3.4-5.1) mmol/L Chloride 102 (98-107) mmol/L Carbon Dioxide 31 (22-32) mmol/L BUN 13 (9-20) mg/dL Creatinine 0.68 (0.66-1.25) mg/dL Estimated GFR > 60.0 (>60) mL/min BUN/Creatinine Ratio 19.1 (6-22) Glucose 110 H (70-100) mg/dL Calcium 9.2 (8.4-10.2) mg/dL Total Bilirubin 1.2 (0.2-1.3) mg/dL AST 29 (17-59) IU/L ALT 19 (<50) IU/L Alkaline Phosphatase 46 (38-126) U/L Total Creatine Kinase (55-170) U/L CK-MB (CK-2) CK-MB (CK-2) Rel Index Troponin I (0.01-0.034) ng/mL Total Protein 8.2 (6.3-8.2) g/dL Albumin 4.0 (3.5-5.0) g/dL Globulin 4.2 H (1.7-4.1) g/dL Albumin/Globulin Ratio 1.0 (1.0-2.8) COVID-19 PCR (Negative) 03/14/20 03/14/20 Range/Units 12:30 13:00 WBC (4.5-11.0) X10^3/uL RBC (4.5-5.9) X10^6/uL Hgb (13.5-17.5) g/dL Hct (41-53) % MCV (80-100) fL MCH (26-34) PG MCHC (30-36) % RDW (11.6-14.8) % Plt Count (150-400) X10^3/uL Neut % (Auto) (50-75) % Lymph % (Auto) (25-40) % [place] % (Auto) (3-14) % Eos % (Auto) (2-4) % Baso % (Auto) (0-2) % Neut # (Auto) (5973-7154) /uL Lymph # (Auto) (5908-2558) /uL [place] # (Auto) (0-900) /uL Eos # (Auto) (0-450) /uL Baso # (Auto) (0-100) /uL D-Dimer (<230) ng/mL Sodium (137-145) mmol/L Potassium (3.4-5.1) mmol/L Chloride (98-107) mmol/L Carbon Dioxide (22-32) mmol/L BUN (9-20) mg/dL Creatinine (0.66-1.25) mg/dL Estimated GFR (>60) mL/min BUN/Creatinine Ratio (6-22) Glucose (70-100) mg/dL Calcium (8.4-10.2) mg/dL Total Bilirubin (0.2-1.3) mg/dL AST (17-59) IU/L ALT (<50) IU/L Alkaline Phosphatase (38-126) U/L Total Creatine Kinase 28 L (55-170) U/L CK-MB (CK-2) TNP CK-MB (CK-2) Rel Index TNP Troponin I < 0.012 (0.01-0.034) ng/mL Total Protein (6.3-8.2) g/dL Albumin (3.5-5.0) g/dL Globulin (1.7-4.1) g/dL Albumin/Globulin Ratio (1.0-2.8) COVID-19 PCR Negative (Negative) Imaging Data Chest x-ray: Radiologist's Impression: [address] [id number] ReportSigned Patient: Shaw Melvin [facility]#: [id number]: 1Acct:[id number]/Sex: 59 / MDate of Service: 03/14/20Loc: EDAccession Number: [id number] Procedure: XR chest 1V Ordering Provider: Shayla Resendez PROCEDURE: XR CHEST 1V INDICATIONS: Cough TECHNIQUE: One view of the chest was acquired. COMPARISON: [facility] , CHEST 2 VIEW, 05/06/2015, 14:45. FINDINGS: Surgical changes and devices: None. Lungs and pleura: An incomplete inspiratory result is noted, causing a crowded appearance to the lung markings. No focal infiltrates are seen. No pneumothorax or significant pleural effusions are seen. Mediastinum: Mediastinal contours appear normal. Heart size is normal. Bones and chest wall: No suspicious bony lesions. Age-appropriate bony degenerative changes are seen. Overlying soft tissues appear unremarkable. IMPRESSION: No definite, focal infiltrates are seen. If there is clinical concern for a developing pulmonary process, a short-term followup chest series (with PA and lateral views, performed in deep inspiration) is suggested for further evaluation. Dictated by: Isidro Curry M.D. on 03/14/2020 at 12:00 Approved by: Isidro Curry M.D. on 03/14/2020 at 12:01 CT scan - abdomen/pelvis: Radiologist's Impression: [place] [id number] [place] [id number] Scan ReportSigned Patient: Shaw Melvin DMR#: [id number]: 1960cct:[id number]/Sex: 59 / MDate of Service: 03/14/20Loc: EDAccession Number: [id number] Procedure: CT angio chest PE protocol Ordering Provider: Shayla Resendez PROCEDURE: CT ANGIO CHEST PE PROTOCOL INDICATIONS: r/o PE, hemoptysis, history of PE, 94% on RA, poss D-dimer TECHNIQUE: After the administration of intravenous contrast, 2 mm thick sections acquired from the pulmonary apices to the posterior costophrenic angles. 3-dimensional maximum intensity projection (MIP) coronal and sagittal reformats were then acquired through the thorax. For radiation dose reduction, the following was used: automated exposure control, adjustment of mA and/or kV according to patient size. COMPARISON: [facility], CR, XR CHEST 1V, 03/14/2020, 12:36. [facility], CT, IVP (ABD & PEL WWO CONTRAST), 05/06/2015, 14:41. [facility], CT, PE STUDY (CTA CHEST), 08/12/2012, 10:27. FINDINGS: Image quality: Segmental branches are poorly opacified, limiting evaluation of potential embolism. Pulmonary arteries: Main pulmonary artery is enlarged. There are no intraluminal filling defects to suggest central pulmonary embolism. Lungs and pleura: There are clusters of subcentimeter nodules identified within the lungs most notably in the posterior aspect of the left upper lobe and anterior and mid aspect of the left lower lobe. Mediastinum: Heart size is enlarged, without pericardial effusion. No mediastinal or hilar adenopathy. Thoracic aorta is normal in caliber and enhancement. Esophagus is normal in caliber, without hiatal hernia. Bones and chest wall: No suspicious bony lesions. Ribs and thoracic spine appear intact throughout. Thyroid gland is unremarkable . No axillary or supraclavicular adenopathy. Abdomen: Visualized upper abdominal solid organs appear normal in the early arterial phase of enhancement. IMPRESSION: 1. No central pulmonary embolism. Segmental branches are not well opacified and are not able to be adequately evaluated for potential embolism. 2. Clusters of nodular opacities within the left lung as above. Overall ap pearance is most suggestive of infection or inflammation including atypical etiology such as fungal or mycobacterial. Recommend interval follow up after appropriate therapy to document resolution. Dictated by: Daria Hilario M.D. on 03/14/2020 at 14:35 Approved by: Daria Hilario M.D. on 03/14/2020 at 14:40 ECG Data Interpretation: 1231: Sinus rhythm, Rate 77, OK interval 188, QTC 42, no ST elevation or ST depression. T-wave inversion noted in V1. EKG also viewed by Dr. Tripathi per protocol. MDM Narrative Medical decision making narrative: 59yo male presents to to the emergency department for hemoptysis for the past 24 hours. Patient is concerned about possible PE as this is how it presented in the past. Laboratory tests were ordered, patient's D-dimer was slightly elevated at 271, however, it was below the Age adjusted D-dimer cuttoff is 295. However given elevated well's criteria and PERC score, CT scan was initiated. CT is concerning for nodular area paste these concerning for fungal versus myocardial bacteria. Patient had to leave Against Medical Advice early due to external commitments. We discussed importance of follow-up, patient was agreeable. Multiple personal within the health department or contacted, Dr. Cohen states patient is okay for outpatient testing. One of her angled and sputum cultures ordered prior to patient leaving. 1914: I later spoke with patient on the phone and updated him a plan of care, recommended scheduling a follow-up appointment with his PCP in 1 week, discussed test results will be related positive. He is not need to quarantine unless test results come back concerning per Department of Health. Patient agreed to plan of care verbalized understanding. Return precautions given for new worsening symptoms. Less likely PE given CT negative for pulmonary embolism however, there is some opacities that were difficult to visualize. Less likely cardiac etiology given negative troponin, no chest pain. Most likely viral or concerning fungal verses TB. <Kailyn Tripathi, DO - Last Filed: 03/15/20 19:14> Lab Data Attestation: I reviewed the patient's lab results. Labs: Lab Results 03/14/20 03/14/20 03/14/20 Range/Units 12:30 12:30 12:30 WBC 8.4 (4.5-11.0) X10^3/uL RBC 4.92 (4.5-5.9) X10^6/uL Hgb 16.4 (13.5-17.5) g/dL Hct 48.9 (41-53) % MCV 99.2 (80-100) fL MCH 33.4 (26-34) PG MCHC 33.6 (30-36) % RDW 13.8 (11.6-14.8) % Plt Count 201 (150-400) X10^3/uL Neut % (Auto) 75.6 H (50-75) % Lymph % (Auto) 15.0 L (25-40) % [place] % (Auto) 7.8 (3-14) % Eos % (Auto) 1.0 L (2-4) % Baso % (Auto) 0.6 (0-2) % Neut # (Auto) 6400 (5467-6794) /uL Lymph # (Auto) 1300 (0659-9522) /uL [place] # (Auto) 700 (0-900) /uL Eos # (Auto) 100 (0-450) /uL Baso # (Auto) 100 (0-100) /uL D-Dimer 271 H (<230) ng/mL Sodium 138 (137-145) mmol/L Potassium 4.3 (3.4-5.1) mmol/L Chloride 102 (98-107) mmol/L Carbon Dioxide 31 (22-32) mmol/L BUN 13 (9-20) mg/dL Creatinine 0.68 (0.66-1.25) mg/dL Estimated GFR > 60.0 (>60) mL/min BUN/Creatinine Ratio 19.1 (6-22) Glucose 110 H (70-100) mg/dL Calcium 9.2 (8.4-10.2) mg/dL Total Bilirubin 1.2 (0.2-1.3) mg/dL AST 29 (17-59) IU/L ALT 19 (<50) IU/L Alkaline Phosphatase 46 (38-126) U/L Total Creatine Kinase (55-170) U/L CK-MB (CK-2) CK-MB (CK-2) Rel Index Troponin I (0.01-0.034) ng/mL Total Protein 8.2 (6.3-8.2) g/dL Albumin 4.0 (3.5-5.0) g/dL Globulin 4.2 H (1.7-4.1) g/dL Albumin/Globulin Ratio 1.0 (1.0-2.8) COVID-19 PCR (Negative) 03/14/20 03/14/20 Range/Units 12:30 13:00 WBC (4.5-11.0) X10^3/uL RBC (4.5-5.9) X10^6/uL Hgb (13.5-17.5) g/dL Hct (41-53) % MCV (80-100) fL MCH (26-34) PG MCHC (30-36) % RDW (11.6-14.8) % Plt Count (150-400) X10^3/uL Neut % (Auto) (50-75) % Lymph % (Auto) (25-40) % [place] % (Auto) (3-14) % Eos % (Auto) (2-4) % Baso % (Auto) (0-2) % Neut # (Auto) (4234-3460) /uL Lymph # (Auto) (9351-1570) /uL [place] # (Auto) (0-900) /uL Eos # (Auto) (0-450) /uL Baso # (Auto) (0-100) /uL D-Dimer (<230) ng/mL Sodium (137-145) mmol/L Potassium (3.4-5.1) mmol/L Chloride (98-107) mmol/L Carbon Dioxide (22-32) mmol/L BUN (9-20) mg/dL Creatinine (0.66-1.25) mg/dL Estimated GFR (>60) mL/min BUN/Creatinine Ratio (6-22) Glucose (70-100) mg/dL Calcium (8.4-10.2) mg/dL Total Bilirubin (0.2-1.3) mg/dL AST (17-59) IU/L ALT (<50) IU/L Alkaline Phosphatase (38-126) U/L Total Creatine Kinase 28 L (55-170) U/L CK-MB (CK-2) TNP CK-MB (CK-2) Rel Index TNP Troponin I < 0.012 (0.01-0.034) ng/mL Total Protein (6.3-8.2) g/dL Albumin (3.5-5.0) g/dL Globulin (1.7-4.1) g/dL Albumin/Globulin Ratio (1.0-2.8) COVID-19 PCR Negative (Negative) MDM Narrative Medical decision making narrative: Patient case, imaging and results reviewed by myself. We also discussed recommendations from Infectious Disease and we discussed contacting [facility] which felt that they could take over the case from here. They actually contacted me today on 03/15/2020 and I spoke with [facility] health primary care sales representative who will contact the patient to continue with follow-up we discussed labs that were obtained and they were pleased with the twice is made as well as the fact that sputum culture was cooking for AFB as well as fungal culture and they will contact medical records for specifics. Discharge Plan Departure Patient Disposition: Left Against Medical Advice Clinical Impression: Coughing up blood Instructions: DI for Tuberculosis Activity Restrictions/Additional Instructions: Thank you for entrusting me with your care today. As discussed, your CT is concerning for possible TB or a fungal infection. We are attempting to contact the health department for follow-up. You have left before we were able to reach them against advisement. We will call you as soon as we can reach them. If you do not hear anything in the next 24 hours, please call us back. Continue to wear mass, stay home as much as possible, stay away from a vulnerable populations. Return emergency department for any new or worsening symptoms. Prescriptions: No Action atorvastatin 20 mg tablet 20 mg PO BEDTIME Qty: 45 RF: 1 allopurinol 300 mg tablet 300 mg PO DAILY Qty: 90 RF: 1 lisinopril-hydrochlorothiazide 10-12.5 mg tablet 1 tab PO DAILY Qty: 90 RF: 1 Referrals: Jocelynn Pablo ARNP [Primary Care Provider] - Stand Alone Forms: Against Medical Advice
[2020-03-14 12:40] LABS: Add Manual Diff / Slide Review NO; Basophils Absolute Auto 100 /uL (0-100); Basophils Percent Auto 0.6 % (0-2); Eosinophils Absolute Auto 100 /uL (0-450); Hematocrit 48.9 % (41-53); Hemoglobin 16.4 g/dL (13.5-17.5); Lymphocytes Absolute Auto 1300 /uL (1100-4500); Mean Corpuscular HGB Conc 33.6 % (30-36); Mean Corpuscular Hemoglobin 33.4 PG (26-34); Mean Corpuscular Volume 99.2 fL (80-100); Monocytes Absolute Auto 700 /uL (0-900); Monocytes Percent Auto 7.8 % (3-14); Neutrophils Absolute Auto 6400 /uL (1500-7000); Neutrophils Percent Auto 75.6 % (50-75); Platelet Count 201 X10^3/uL (150-400); Red Blood Cell Count 4.92 X10^6/uL (4.5-5.9); Red Cell Distribution Width 13.8 % (11.6-14.8); White Blood Cell Count 8.4 X10^3/uL (4.5-11.0)
[2020-03-14 12:51] LABS: Creatine Kinase 28 U/L (55-170); D Dimer 271 ng/mL (<230)
[2020-03-14 12:52] LABS: Alanine Aminotransferase 19 IU/L (<50); Alkaline Phosphatase 46 U/L (38-126); Aspartate Aminotransferase 29 IU/L (17-59); BUN Creatinine Ratio 19.1 (6-22); Bilirubin Total 1.2 mg/dL (0.2-1.3); Blood Urea Nitrogen 13 mg/dL (9-20); Calcium 9.2 mg/dL (8.4-10.2); Carbon Dioxide 31 mmol/L (22-32); Chloride 102 mmol/L (98-107); Estimated Glomerular Filt Rate > 60.0 mL/min (>60); Globulin 4.2 g/dL (1.7-4.1); Glucose 110 mg/dL (70-100); HEMOLYSIS 18 (0-50); Potassium 4.3 mmol/L (3.4-5.1); Sodium 138 mmol/L (137-145); Total Protein 8.2 g/dL (6.3-8.2)
[2020-03-14 13:04] LABS: Troponin I < 0.012 ng/mL (0.01-0.034)
[2020-03-14 13:35] LABS: COVID19 -Nasal RAPID Negative (Negative)
--- NOTE | 2020-03-14 13:44 | DI.CT.S_ITS ---
PROCEDURE: CT ANGIO CHEST PE PROTOCOL INDICATIONS: r/o PE, hemoptysis, history of PE, 94% on RA, poss D-dimer TECHNIQUE: After the administration of intravenous contrast, 2 mm thick sections acquired from the pulmonary apices to the posterior costophrenic angles. 3-dimensional maximum intensity projection (MIP) coronal and sagittal reformats were then acquired through the thorax. For radiation dose reduction, the following was used: automated exposure control, adjustment of mA and/or kV according to patient size. COMPARISON: [facility], CR, XR CHEST 1V, 03/14/2020, 12:36. [facility], CT, IVP (ABD & PEL WWO CONTRAST), 05/06/2015, 14:41. [facility], CT, PE STUDY (CTA CHEST), 08/12/2012, 10:27. FINDINGS: Image quality: Segmental branches are poorly opacified, limiting evaluation of potential embolism. Pulmonary arteries: Main pulmonary artery is enlarged. There are no intraluminal filling defects to suggest central pulmonary embolism. Lungs and pleura: There are clusters of subcentimeter nodules identified within the lungs most notably in the posterior aspect of the left upper lobe and anterior and mid aspect of the left lower lobe. Mediastinum: Heart size is enlarged, without pericardial effusion. No mediastinal or hilar adenopathy. Thoracic aorta is normal in caliber and enhancement. Esophagus is normal in caliber, without hiatal hernia. Bones and chest wall: No suspicious bony lesions. Ribs and thoracic spine appear intact throughout. Thyroid gland is unremarkable . No axillary or supraclavicular adenopathy. Abdomen: Visualized upper abdominal solid organs appear normal in the early arterial phase of enhancement. IMPRESSION: 1. No central pulmonary embolism. Segmental branches are not well opacified and are not able to be adequately evaluated for potential embolism. 2. Clusters of nodular opacities within the left lung as above. Overall appearance is most suggestive of infection or inflammation including atypical etiology such as fungal or mycobacterial. Recommend interval follow up after appropriate therapy to document resolution. Dictated by: Daria Hilario M.D. on 03/14/2020 at 14:35 Approved by: Daria Hilario M.D. on 03/14/2020 at 14:40
[2020-03-16 15:43] LABS: QuantiFERON Mitogen Value 5.79 IU/mL (.); QuantiFERON Nil Value 0.13 IU/mL (.); QuantiFERON TB Gold Plus Negative (Negative); QuantiFERON TB1 Ag Value 0.19 IU/mL (.); QuantiFERON TB2 Ag Value 0.13 IU/mL (.)
== END 2020-03-14 17:00 | disposition left against medical advice (07) ==
PROVIDERS: Emergency Provider Nurse Practitioner; Family Provider Physician Assistant; PCP Nurse Practitioner
DX: R04.2 Hemoptysis (principal); D72.829 Elevated white blood cell count, unspecified
CPT/HCPCS: 36415; 71045; 71275; 80053; 82550; 84484; 85025; 85379; 86480; 87015; 87070; 87102; 87116; 87205; 87206; 87635; 93005; 96360; 99284; Q9967

== ENCOUNTER → 2020-04-14 14:36 | Outpatient (CLI) | payer BC, SELFPAY ==
--- NOTE | 2020-04-14 14:38 | DI.CT.S_ITS ---
PROCEDURE: CT ANGIO CHEST INDICATIONS: Follow-up recent bout of hemoptysis with abnormal CT scan TECHNIQUE: After the administration of intravenous contrast, 2 mm thick sections acquired from the pulmonary apices to the posterior costophrenic angles. 3-dimensional maximum intensity projection (MIP) coronal and sagittal reformats were then acquired through the thorax. For radiation dose reduction, the following was used: automated exposure control, adjustment of mA and/or kV according to patient size. COMPARISON: [facility], CT, CT ANGIO CHEST PE PROTOCOL, 03/14/2020, 14:05. FINDINGS: Image quality: Excellent. Pulmonary arteries: Pulmonary arteries are normal in size, and demonstrate no intraluminal filling defects to suggest central pulmonary embolism. Lungs and pleura: No evidence of pneumonia or edema. Resolution of previously seen patchy multi nodular densities within the left lung. No change in subpleural 5 mm nodule within the right upper lobe anteriorly. Scarring within the left anterior lung base.. No pleural effusions or pneumothorax. Central and peripheral airways are patent. Mediastinum: Heart size is enlarged, without pericardial effusion. Severe atherosclerotic calcification of the coronary vasculature. No mediastinal or hilar adenopathy. Thoracic aorta is normal in caliber and enhancement. Esophagus is normal in caliber, without hiatal hernia. Bones and chest wall: No suspicious bony lesions. Ribs and thoracic spine appear intact throughout. Thyroid gland is within normal limits . No axillary or supraclavicular adenopathy. Abdomen: Visualized upper abdominal solid organs appear normal in the early arterial phase of enhancement. IMPRESSION: 1. No pulmonary embolus. 2. Coronary artery disease. 3. Resolution of previously seen left lung opacities. 4. Stable right upper lobe pulmonary nodule. Follow-up is recommended as below. Fleischner Society criteria for SOLID lung nodule followup. Nodule size (mm)Low-risk patientHigh-risk patient<6 (single or multiple)No routine followup.Optional CT at 12 months. 6-8 (single or multiple)CT at 6-12 months, then optional CT at 18-24 mo.CT at 6-12 months, then CT at 18-24 months. >8 (single)CT, PET-CT, or biopsy at 3 months. Same as for low-risk pts. >8 (multiple)CT at 3-6 months, then optional CT at 18-24 mo.CT at 3-6 months, then CT at 18-24 months. Recommendations do not apply to lung cancer screening, patients with immunosuppression, or patients with known primary cancer. Dictated by: Maximiliano Drew M.D. on 04/14/2020 at 16:14 Approved by: Maximiliano Drew M.D. on 04/14/2020 at 16:18
== END ==
PROVIDERS: Family Provider Physician Assistant; PCP Nurse Practitioner; Referring Provider Nurse Practitioner; Visit Provider Nurse Practitioner
DX: R04.2 Hemoptysis (principal); R93.89 Abnormal findings on diagnostic imaging of other specified body structures; R91.1 Solitary pulmonary nodule; I25.10 Atherosclerotic heart disease of native coronary artery without angina pectoris; I51.7 Cardiomegaly
CPT/HCPCS: 71275; Q9967

== ENCOUNTER → 2021-04-13 15:41 | Outpatient (CLI) | payer BC, SELFPAY ==
--- NOTE | 2021-04-13 15:42 | DI.CT.S_ITS ---
PROCEDURE: CT CHEST WO CON INDICATIONS: Lung nodule noted on CT 04/14/20 TECHNIQUE: Noncontrast 2.0-2.5 mm thick sections acquired from the pulmonary apices to the posterior costophrenic angles. 7 mm thick axial MIP and 5 mm coronal and sagittal reformats were then acquired. A low radiation dose technique was utilized. COMPARISON: [facility], CT, CT ANGIO CHEST PE PROTOCOL, 03/14/2020, 14:05. CT, PE STUDY (CTA CHEST), 08/12/2012, 10:27. [facility], CT, CT ANGIO CHEST, 04/14/2020, 14:40. FINDINGS: Image quality: Diagnostic, given the low radiation dose technique. Lungs and pleura: The 4 mm nodule in the right upper lobe (series 3, image 82) is unchanged since 08/12/2012, compatible with a benign nodule. Mediastinum: Heart size is normal. Moderate coronary artery calcification. No pericardial effusion. No mediastinal adenopathy by size criteria. Thoracic aorta and central pulmonary arteries are normal in size. Esophagus is normal in caliber. Tiny hiatal hernia. Bones and chest wall: No suspicious bony lesions. No vertebral body compression fractures. No axillary or supraclavicular adenopathy by size criteria. Thyroid gland is normal . Abdomen: Visualized upper abdomen solid organs and bowel loops appear normal in the absence of contrast. IMPRESSION: 1. Stable 4 mm nodule in the right upper lobe since 08/12/2012, compatible with a benign nodule. No additional follow-up is needed. No 2. Moderate coronary artery calcification. Fleischner Society criteria for SOLID lung nodule followup. Nodule size (mm)Low-risk patientHigh-risk patient<6 (single or multiple)No routine followup.Optional CT at 12 months. 6-8 (single or multiple)CT at 6-12 months, then optional CT at 18-24 mo.CT at 6-12 months, then CT at 18-24 months. >8 (single)CT at 3 months, PET-CT, or biopsy. Same as for low-risk pts. >8 (multiple)CT at 3-6 months, then optional CT at 18-24 mo.CT at 3-6 months, then CT at 18-24 months. Fleischner Society criteria for SUB-SOLID lung nodule followup. Solitary pure ground-glass nodules<6 mm (ground glass or part solid)No followup needed. 6 mm or larger (ground glass)CT at 6-12 months to confirm persistence, then CT every 2 years until 5 years.6 mm or larger (part solid)CT at 3-6 months to confirm persistence, then annual CT until 5 years if unchanged and solid component remains <6 mm. Multiple sub-solid nodules<6 mmCT at 3-6 months, then CT consider at 2 & 4 years for high risk patients. [address] at 3-6 months. Subsequent management based on most suspicious lesions. Recommendations do not apply to lung cancer screening, patients with immunosuppression, or patients with known primary cancer. Dictated by: Bradley Blackwell M.D. on 04/13/2021 at 16:52 Approved by: Bradley Blackwell M.D. on 04/13/2021 at 16:58
== END ==
PROVIDERS: Family Provider Physician Assistant; PCP Family Medicine; Referring Provider Family Medicine; Visit Provider Family Medicine
DX: I26.99 Other pulmonary embolism without acute cor pulmonale (principal); R91.1 Solitary pulmonary nodule; I25.10 Atherosclerotic heart disease of native coronary artery without angina pectoris
CPT/HCPCS: 71250

== ENCOUNTER → 2021-08-10 14:50 | Outpatient (CLI) | payer BC, SELFPAY | PROVIDERS: Family Provider Physician Assistant; PCP Family Medicine; Referring Provider Family Medicine; Visit Provider Family Medicine | DX: M25.561 Pain in right knee (principal); M25.562 Pain in left knee ==

== ENCOUNTER 2021-09-18 09:37 | Emergency (ER) | payer BC, SELFPAY ==
--- NOTE | 2021-09-18 11:43 | PC.NURSE ---
Staff called for patient three different attempts. All lobbies surrounding ER Triage and restrooms checked. Admitting called PCP office and they had not seen patient.
== END 2021-09-18 11:45 | disposition left against medical advice (07) ==
PROVIDERS: Emergency Provider Emergency Medicine; Family Provider Physician Assistant; PCP Family Medicine; Referring Provider Registered Nurse Diabetes Educator

== ENCOUNTER → 2024-07-16 14:59 | Outpatient (CLI) | payer BC, SELFPAY ==
[2024-07-16 16:01] LABS: Influenza A - CEPHEID Flu A POSITIVE (NEGATIVE); Influenza B - CEPHEID Flu B NEGATIVE (NEGATIVE); Respiratory Syncytial Virus Negative (Negative)
[2024-07-16 16:10] LABS: COVID-19 CEPHEID 4-PLEX PCR Negative (Negative)
== END ==
PROVIDERS: PCP Family Medicine; Visit Provider Physician Assistant Medical
DX: R05.9 Cough, unspecified (principal)
CPT/HCPCS: 0241U

== ENCOUNTER → 2024-07-16 15:11 | Outpatient (CLI) | payer BC, SELFPAY ==
--- NOTE | 2024-07-16 15:13 | DI.RAD.S_ITS ---
PROCEDURE: XR CHEST 2V INDICATIONS: Cough TECHNIQUE: 2 views of the chest were acquired. COMPARISON: [facility], CR, XR CHEST 1V, 03/14/2020, 12:36. [facility], CT, CT CHEST WO CON, 04/13/2021, 15:49. FINDINGS AND IMPRESSION: No dense airspace disease or pleural effusion. Indeterminate enlarged perihilar structures, probably prominent vasculature which may represent edema. Heart size is at the upper limit of normal. Unremarkable osseous structures. Dictated by: Mejia Patel M.D. on 07/16/2024 at 15:30 Approved by: Mejia Patel M.D. on 07/16/2024 at 15:33
== END ==
LOC: RAD 15:12
PROVIDERS: PCP Family Medicine; Referring Provider Physician Assistant Medical; Visit Provider Physician Assistant Medical
DX: R05.9 Cough, unspecified (principal)
CPT/HCPCS: 0241U; 71046

== ENCOUNTER → 2024-08-26 15:47 | Outpatient (CLI) | payer BC, SELFPAY ==
--- NOTE | 2024-08-26 15:50 | DI.RAD.S_ITS ---
PROCEDURE: XR KNEE RT 3V INDICATIONS: BI knee pain TECHNIQUE: 3 views of the knee were acquired. COMPARISON: None. FINDINGS: Bones: No fractures or dislocations. No suspicious bony lesions. Medial and lateral joint space narrowing with marginal osteophytes. Popliteal atherosclerotic vascular calcification Soft tissues: No joint effusion. No suspicious soft tissue calcifications. IMPRESSION: [id number] osteoarthritis Approved by: Clive Benítez M.D. on 08/27/2024 at 16:57
--- NOTE | 2024-08-26 15:50 | DI.RAD.S_ITS ---
PROCEDURE: XR KNEE LT 3V INDICATIONS: BI knee pain TECHNIQUE: 3 views of the knee were acquired. COMPARISON: None. FINDINGS: Bones: No fractures or dislocations. No suspicious bony lesions. Medial compartment moderate joint space narrowing with marginal osteophytes Soft tissues: Small joint effusion. Popliteal atherosclerotic vascular calcification IMPRESSION: Osteoarthritis without fracture Approved by: Clive Benítez M.D. on 08/27/2024 at 16:57
== END ==
PROVIDERS: PCP Family Medicine; Referring Provider Family Medicine; Visit Provider Family Medicine
DX: M17.0 Bilateral primary osteoarthritis of knee (principal); M25.561 Pain in right knee; M25.562 Pain in left knee; G89.29 Other chronic pain
CPT/HCPCS: 73562